=== PATIENT | male | born 1995 | race African-American/Black ===

== ENCOUNTER 2020-02-02 18:00 | Emergency (ER) | payer SELFPAY ==
[2020-02-02 18:34] VITALS: BP 130/79; PULSE 104
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
--- NOTE | 2020-02-02 19:01 | CR ---
Left foot: 3 views of the left foot were obtained. Fractures are identified within the distal metatarsal heads of the second, third and fourth digits. Dislocation is noted at the MTP joint of the fifth digit. Soft tissue swelling is identified. No additional abnormality is appreciated. Impression: 1. Fractures within the distal head of the second through fourth metatarsals. 2. Dislocated MTP joint of the fifth digit. Diagnostic code #3 This report was dictated in MDT
== END 2020-02-02 19:55 | disposition home or self-care (01) ==
LOC: JD.ED 18:00
DX: S92.322A Displaced fracture of second metatarsal bone, left foot, initial encounter for closed fracture (principal); S92.332A Displaced fracture of third metatarsal bone, left foot, initial encounter for closed fracture; S92.342A Displaced fracture of fourth metatarsal bone, left foot, initial encounter for closed fracture; S93.125A Dislocation of metatarsophalangeal joint of left lesser toe(s), initial encounter; S90.32XA Contusion of left foot, initial encounter; S50.312A Abrasion of left elbow, initial encounter; S30.810A Abrasion of lower back and pelvis, initial encounter; S70.312A Abrasion, left thigh, initial encounter; S80.812A Abrasion, left lower leg, initial encounter; R00.0 Tachycardia, unspecified; F17.210 Nicotine dependence, cigarettes, uncomplicated; V00.1 Rolling-type pedestrian conveyance accident
CPT/HCPCS: 26770; 28630; 73630-26-LT; 73630-LT; 99283; 99283-25

== ENCOUNTER 2024-02-25 14:00 | Emergency (ER) | payer SELFPAY ==
[2024-02-25 14:33] VITALS: BP 134/82; PULSE 58
== END 2024-02-25 15:44 | disposition left against medical advice (07) ==
LOC: JD.ED 14:00
DX: Z53.21 Procedure and treatment not carried out due to patient leaving prior to being seen by health care provider (principal)
CPT/HCPCS: 93005